=== PATIENT | male | born 1970 | race Caucasian/White ===

== ENCOUNTER 2024-01-19 21:09 | Emergency (ER) | payer OTHER, SELFPAY ==
[2024-01-19 21:09] VITALS: BMI 23.3
[2024-01-19 21:11] VITALS: BP 140/102
[2024-01-19 21:45] LABS: % Basophils 0.3 % (0-2); % Immature Granulocytes 0.4 % (0-0.5); % Lymphocytes 13.1 % (20.5-51.1); % Monocytes 8.3 % (1.7-9.3); % Neutrophils 76.9 % (42.2-75.2); Absolute Eosinophils 0.1 10^3/uL (0-0.7); Absolute Lymphocytes 1.4 10^3/uL (1.2-3.4); Absolute Monocytes 0.9 10^3/uL (0.1-0.6); Absolute Neutrophils 8.3 10^3/uL (1.4-6.5); Hematocrit 43.6 % (39.0-52.0); Hemoglobin 15.3 g/dL (13.0-18.0); Mean Corp Hgb Conc. 35.1 g/dL (33.0-37.0); Mean Corpuscular Volume 88.3 fL (80.0-94.0); Mean Platelet Volume 9.1 fL (7.4-10.4); Nucleated Red Blood Cells % 0 % (-); Platelet Count 274 10^3/uL (130-400); Red Blood Cell Count 4.94 10^6/uL (4.70-6.10); Red Cell Dist. Width 12.3 % (11.5-14.5); White Blood Cell Count 10.7 10^3/uL (4.8-10.8)
--- NOTE | 2024-01-19 22:03 | ED.GENMED ---
History of Present Illness
General
Chief Complaint: Headache
Source: patient
Exam Limitations: none
Time Seen by Provider: 01/19/24 21:48
Travel History
Have you had any contact with someone who has COVID-19?: No
Do you have any symptoms of coronavirus? Fever > 100 degrees, chills, cough, shortness of breath, sore throat, loss of taste or smell, muscle aches, or headache?: No
History of Present Illness
History of Present Illness:
This is a 53 year old male that comes in with c/o Migraine. States that this started on Friday and it is worse then his normal migraines. State that he started also with nausea and vomiting. States that he is light and sound sensitive. State that he
is living in his friends barn. States that he feels SOB with the pain and dizzy. Denies any fever, chills, chest pain, abd pain, diarrhea, urinary burning.
Past History
Past History
ED Past Medical History: HTN and Other (Migraines)
ED Past Surgical History: None
Social History
Tobacco: Smoker (and Vap's)
Alcohol: Occasional
Personal:
Living: homeless (Staying in a friends barn)
Employment: Employed
Review of Systems
Review of Systems
All Other Systems: ROS reviewed and negative except as documented in HPI and ROS
Constitutional: Reports no symptoms; Denies fever or chills
EENT: Reports no symptoms
Respiratory: Reports trouble breathing (with the pain); Denies cough
Cardiac: Reports no symptoms; Denies chest pain
ABD/GI: Reports nausea and vomiting; Denies abdominal pain or diarrhea
: Reports no symptoms; Denies dysuria, frequency or urgency
Musculoskeletal: Reports no symptoms
Skin: Reports no symptoms
Neurological: Reports dizzy and headache
Psychiatric: Reports no symptoms
Phy Exam
General Physical Exam
General Presentation: mild distress
General age: appears stated age
General Skin: warm and dry
General Habitus: poor hygiene
General Mental: alert
General Hydration: appears well hydrated
ENT Exam
ENT Exam: TM's normal, pharynx normal and neck supple
Eye Exam
Eye Exam: EOMI
Cardiovascular Exam
Cardiovascular Exam: regular rate/rhythm, no edema, no murmur and normal peripheral pulses
Pulmonary Exam
Pulmonary Exam: lungs clear, no respiratory distress, no rales, chest non tender, no crackles, no rhonchi, no wheezing and no cough
Gastrointestinal Exam
Gastrointestinal Exam: normal bowel sounds, non tender, soft, no organomegaly, no pulsatile mass and non distended
Musculoskeletal Exam
Musculoskeletal Exam: full ROM and no edema
Skin Exam
Skin Exam: normal color, warm/dry, no rash and no petechia
Psychiatric Exam
Psychiatric Exam: normal mood/affect
Course
Orders/Labs/Results
Orders:
Orders
01/19/24 21:39
Basic Metabolic Panel Urgent
Complete Blood Count/With Diff Urgent
01/19/24 22:02
CT Head W/o Iv Contrast Urgent
Comment:
Reason For Exam: WORSE THEN HIS NORMAL mIGRAINES
0.9% Sodium Chloride 1000 ml [Nss] 1,000 ml IV BOLUS
Acetaminophen [Tylenol] 1,000 mg PO NOW STA
Dexamethasone Sod Phosphate [Decadron] 20 mg IV NOW STA
Diphenhydramine [Benadryl] 25 mg IV NOW STA
Prochlorperazine [Compazine] 5 mg IV NOW STA
Abnormal Lab Results
01/19/24
21:39
Absolute Neuts (auto) 8.3 H 10^3/uL
(1.4-6.5)
Absolute Monos (auto) 0.9 H 10^3/uL
(0.1-0.6)
Neutrophils % 76.9 H %
(42.2-75.2)
Lymphocytes % 13.1 L %
(20.5-51.1)
Chloride 95 L mmol/L
(98-107)
Carbon Dioxide 32 H mmol/L
(22-30)
01/19/24 21:39
01/19/24 21:39
CBC Normal, Chloride slightly low. Carbon dioxide elevated.
Vital Signs
Initial and Last Documented VS:
Initial Vital Signs
Temp Pulse Resp BP Pulse Ox
97.3 F 102 24 140/102 100
01/19/24 21:11 01/19/24 21:11 01/19/24 21:11 01/19/24 21:11 01/19/24 21:11
Last Documented Vital Signs
Temp Pulse Resp BP Pulse Ox
97.3 F 97 20 158/69 100
01/19/24 21:11 01/20/24 00:05 01/20/24 00:05 01/20/24 00:05 01/20/24 00:05
MDM/Problems Addressed
Differential Diagnosis Includes:
Migraine,
MDM/Problems Addressed:
This is a 53 year old male that comes in with c/o migraine. States that this is the worse that he ever had.
Will get labs and CT head. Will medicate for pain.
Patient is feeling better and is now refusing the CT of his head and wants to go home. Will discharge home.
Chronic conditions affecting care:
Chronic migraines
Acute Exacerbation and/or Progression of Chronic Illness:
Migraines
*Pulse Oximetry
Patient hypoxic: no
*EKG
Interpreted by ED Provider?: NA
Rate: EKG- N/A
*Enterprise Application Administrator Interpretation
Rate: Enterprise Application Administrator- N/A
*Critical Care Note
Total Time (30-74mins, 75-104mins- exclusive of procedures): Not Applicable
ED Attending Note
-
Portions of this chart may have been created with voice recognition software.� Occasional wrong word or��sound alike� substitutions may have occurred due to the inherent limitations of voice recognition software.
Discharge Plan
Departure
Patient Disposition: Home (Routine Discharge)
Date of Disposition: 01/20/24
Time of Disposition: 00:17
Patient with high blood pressure during this ER visit?: Yes
Condition: Good
Covid-19: Not Applicable
Discharge Problem:
Migraine
Instructions: Migraines (DC), BLOOD PRESSURE
Prescriptions:
No Action
dextroamphetamine-amphetamine [Adderall XR] 30 mg Capsule,Extended Release 24hr
30 mg PO DAILY
rizatriptan 10 mg Tablet
10 mg PO DAILYPRN PRN (Reason: mirgraines)
buprenorphine-naloxone 8-2 mg film
0.5 film sublingual DAILY
amoxicillin-pot clavulanate 875-125 mg tablet
1 tab PO Q12H Qty: 12 0RF
dextroamphetamine-amphetamine 30 mg tablet
30 mg PO BID
Referrals:
NONE,* [Family Provider] -
Activity Restrictions/Additional Instructions:
As discussed, please follow up with the family doctor for recheck. Please increase your water intake to 8-8oz glasses daily. You may take Tylenol 1000mg every 6 hours for pain and Alternate with Ibuprofen 600mg every 6 hours with food for pain. IF
YOU HAVE ANY OTHER CONCERNS PLEASE RETURN TO THE EMERGENCY ROOM.
Interventions
Interventions:
*Risk Screen - Suicide Last Done: 01/19/24 21:11
*General Assessment Last Done: 01/19/24 23:05
*Neglect/Abuse Screening Last Done: 01/19/24 21:11
ED- Neurological Assessment Last Done: 01/19/24 23:05
Discharge Date and Time
Print Language: GEORGIAN
[2024-01-19 22:08] LABS: Blood Urea Nitrogen 17 mg/dl (9-20); Calcium 9.4 mg/dl (8.4-10.2); Carbon Dioxide 32 mmol/L (22-30); Chloride 95 mmol/L (98-107); Glucose 90 mg/dl (70-99); Sodium 136 mmol/L (135-145); eGFR > 60.00
[2024-01-19] MEDS: NSS 1000 IV (22:19)
[2024-01-19] MEDS: BENADRYL 25 MG IV (22:20)
[2024-01-19] MEDS: TYLENOL 1000 MG PO (22:20)
[2024-01-19] MEDS: COMPAZINE 5 MG IV (22:20)
[2024-01-19] MEDS: DECADRON 20 MG IV (22:21)
[2024-01-19 22:30] VITALS: BP 162/95
[2024-01-20 00:05] VITALS: BP 158/69
== END 2024-01-20 01:30 | disposition home or self-care (01) ==
LOC: EMR 21:09
PROVIDERS: Emergency Medicine; EMERGENCY PHYSICIAN Emergency Medicine
DX: G43.909 Migraine, unspecified, not intractable, without status migrainosus (principal); R11.2 Nausea with vomiting, unspecified; R06.02 Shortness of breath; R42 Dizziness and giddiness; I10 Essential (primary) hypertension; F17.290 Nicotine dependence, other tobacco product, uncomplicated; Z59.01 Sheltered homelessness
CPT/HCPCS: 99284; 96374; 96375 ×2; 96361; 80048; 85025

== ENCOUNTER 2024-02-13 15:46 | Emergency (ER) | payer OTHER, SELFPAY ==
[2024-02-13 15:48] VITALS: BP 163/102
[2024-02-13 16:24] VITALS: BP 156/108; BMI 22.6
[2024-02-13 17:00] VITALS: BP 154/108
[2024-02-13] MEDS: BENADRYL 25 MG IV (17:12)
[2024-02-13] MEDS: NSS 1000 IV (17:12)
[2024-02-13] MEDS: DECADRON 10 MG IV (17:13)
[2024-02-13] MEDS: COMPAZINE 10 MG IV (17:13)
[2024-02-13 17:15] LABS: % Basophils 0.7 % (0-2); % Eosinophils 2.6 % (0-6); % Immature Granulocytes 0.4 % (0-0.5); % Lymphocytes 16.4 % (20.5-51.1); % Neutrophils 68.9 % (42.2-75.2); Absolute Basophils 0.1 10^3/uL (0-0.2); Absolute Eosinophils 0.2 10^3/uL (0-0.7); Absolute Lymphocytes 1.5 10^3/uL (1.2-3.4); Absolute Neutrophils 6.2 10^3/uL (1.4-6.5); Hematocrit 41.2 % (39.0-52.0); Hemoglobin 14.4 g/dL (13.0-18.0); Mean Corpuscular Hgb 30.6 pg (27.0-31.0); Mean Corpuscular Volume 87.7 fL (80.0-94.0); Mean Platelet Volume 8.7 fL (7.4-10.4); Nucleated Red Blood Cells % 0 % (-); Platelet Count 299 10^3/uL (130-400); Red Cell Dist. Width 12.4 % (11.5-14.5); White Blood Cell Count 9.1 10^3/uL (4.8-10.8)
[2024-02-13 17:30] LABS: ALT (SGPT) 33 U/L (0-50); AST (SGOT) 32 U/L (17-59); Albumin 4.1 g/dl (3.5-5.0); Alkaline Phosphatase 58 U/L (38-126); Blood Urea Nitrogen 11 mg/dl (9-20); Calcium 8.9 mg/dl (8.4-10.2); Carbon Dioxide 30 mmol/L (22-30); Chloride 97 mmol/L (98-107); Estimated Creatinine Clearance 122 ml/min; Glucose 133 mg/dl (70-99); Potassium 5.4 mmol/L (3.5-5.1); Sodium 135 mmol/L (135-145); Total Bilirubin 0.6 mg/dl (0.2-1.3); Total Protein 6.8 g/dl (6.3-8.2); eGFR > 60.00
[2024-02-13 18:00] VITALS: BP 179/115
--- NOTE | 2024-02-13 19:36 | ED.CVA ---
History of Present Illness
General
Chief Complaint: CVA/TIA Symptoms
Source: patient
Time Seen by Provider: 02/13/24 16:50
Onset of Stroke Symptoms
Onset of symptoms known: No
Time pt last seen normal is known: No
Travel History
Have you had any contact with someone who has COVID-19?: No
Do you have any symptoms of coronavirus? Fever > 100 degrees, chills, cough, shortness of breath, sore throat, loss of taste or smell, muscle aches, or headache?: No
History of Present Illness
History of Present Illness:
53-year-old male presents complaining of left-sided facial droop and numbness with dysfunction of the left side of his face that started yesterday morning. He also notes a headache. He has a history of migraines. He was here about 3 to 4 weeks
ago for migraine headache. He states he has not had his Suboxone in 3 days. He typically is on 8 mg dissolvable medication. No fever or rash.
Past History
Past History
ED Past Medical History: HTN and Other (Migraines)
ED Past Surgical History: None
Social History
Tobacco: Smoker (and Vap's)
Alcohol: Occasional
Personal:
Living: homeless (Staying in a friends barn)
Employment: Employed
Phy Exam
Physical Exam
Physical Exam:
General: Well-appearing male no acute respiratory distress
HEENT: Normocephalic atraumatic left-sided facial droop noted. Unable to wrinkle forehead on left side. Weak strength with eyelid closing on the left side. Neurologic: Alert normal gait conversing appropriately facial asymmetry noted
Heart: Regular rate and rhythm no murmurs
Lungs: Clear no wheeze or rales
Extremities: No cyanosis or edema
Skin: Warm no rash
Course
Orders/Labs/Results
Orders:
Orders
02/13/24 17:02
0.9% Sodium Chloride 1000 ml [Nss] 1,000 ml IV BOLUS
Dexamethasone Sod Phosphate [Decadron] 10 mg IV NOW STA
Diphenhydramine [Benadryl] 25 mg IV NOW STA
Prochlorperazine [Compazine] 10 mg IV NOW STA
02/13/24 17:10
Complete Blood Count/With Diff Urgent
Comprehensive Metabolic Panel Urgent
Lyme Progressive Urgent
02/13/24 20:35
Buprenorphine [Subutex] 8 mg SL NOW ONE
Abnormal Lab Results
02/13/24
17:10
Absolute Monos (auto) 1.0 H 10^3/uL
(0.1-0.6)
Lymphocytes % 16.4 L %
(20.5-51.1)
Monocytes % 11.0 H %
(1.7-9.3)
Potassium 5.4 H mmol/L
(3.5-5.1)
Chloride 97 L mmol/L
(98-107)
Glucose 133 H mg/dl
(70-99)
02/13/24 17:10
02/13/24 17:10
Vital Signs
Initial and Last Documented VS:
Initial Vital Signs
Temp Pulse Resp BP Pulse Ox
98.2 F 103 20 163/102 99
02/13/24 15:48 02/13/24 15:48 02/13/24 15:48 02/13/24 15:48 02/13/24 15:48
Last Documented Vital Signs
Temp Pulse Resp BP Pulse Ox
98.2 F 88 18 159/114 99
02/13/24 15:48 02/13/24 19:48 02/13/24 19:48 02/13/24 19:48 02/13/24 19:48
MDM/Problems Addressed
Differential Diagnosis Includes:
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 Do not suspect CVA. Patient does have a headache. He was here 3 weeks ago for the same. Treated with Compazine Benadryl steroid and fluids. Patient quite irritable
when I ask him how his symptoms are.
*Critical Care Note
Total Time (30-74mins, 75-104mins- exclusive of procedures): Not Applicable
Update Note
Update Note:
Patient reevaluated multiple times. Exam most consistent with Keita's palsy. Will prescribe prednisone. Lyme test pending. Will also supply 2 days worth of the Suboxone for the patient. He was seen by Chip norman. They have an appointment for him
this coming Friday in 2 days at the [facility]. He received Subutex here 1 dose.
ED Attending Note
-
Portions of this chart may have been created with voice recognition software.� Occasional wrong word or��sound alike� substitutions may have occurred due to the inherent limitations of voice recognition software.
Discharge Plan
Departure
Patient Disposition: Home (Routine Discharge)
Date of Disposition: 02/13/24
Time of Disposition: 20:40
Patient with high blood pressure during this ER visit?: No
Discharge Problem:
Migraine, Keita's palsy
Prescriptions:
New
prednisone 10 mg Tablet
See Rx Instructions .ROUTE .COMPLEX Qty: 45 0RF
Rx Instructions:
Take By Mouth:
50 mg daily x3 days, 40 mg daily x3 days,
30 mg daily x3 days, 20 mg daily x3 days,
10 mg daily x3 days
buprenorphine-naloxone [Suboxone] 8-2 mg film
1 film buccal DAILY Qty: 2 0RF
No Action
dextroamphetamine-amphetamine [Adderall XR] 30 mg Capsule,Extended Release 24hr
30 mg PO DAILY
rizatriptan 10 mg Tablet
10 mg PO DAILYPRN PRN (Reason: mirgraines)
buprenorphine-naloxone 8-2 mg film
0.5 film sublingual DAILY
amoxicillin-pot clavulanate 875-125 mg tablet
1 tab PO Q12H Qty: 12 0RF
dextroamphetamine-amphetamine 30 mg tablet
30 mg PO BID
Referrals:
UNKNOWN - PT DOES,NOT KNOW [Family Provider] -
Activity Restrictions/Additional Instructions:
Please follow-up with the [facility] as directed. Use prednisone as directed for your Keita's palsy. You were prescribed 2 tablets of Suboxone to get you through till Friday until he sees the [facility].
Interventions
Interventions:
*Risk Screen - Suicide Last Done: 02/13/24 16:25
*General Assessment Last Done: 02/13/24 16:25
*Neglect/Abuse Screening Last Done: 02/13/24 16:25
ED- Fall Risk Assessment Last Done: 02/13/24 16:29
*ED COVID-19 Vaccine History Last Done: 02/13/24 15:48
ED- Pulmonary Assessment Last Done: 02/13/24 16:30
ED- Neurological Assessment Last Done: 02/13/24 16:29
ED- Cardiac Assessment Last Done: 02/13/24 16:28
ED Swallowing Screen Last Done: 02/13/24 16:28
Discharge Date and Time
Print Language: WELSH
[2024-02-13 19:48] VITALS: BP 159/114
[2024-02-13 20:43] VITALS: BP 169/109
[2024-02-13] MEDS: SUBUTEX 8 MG SL (20:56)
[2024-02-16 14:39] LABS: Lyme Antibody Screen, EIA Negative (Negative)
== END 2024-02-13 21:31 | disposition home or self-care (01) ==
LOC: EMR 15:46
PROVIDERS: Physician Assistant; EMERGENCY PHYSICIAN Emergency Medicine
DX: G51.0 Bell's palsy (principal); G43.909 Migraine, unspecified, not intractable, without status migrainosus; I10 Essential (primary) hypertension; F17.290 Nicotine dependence, other tobacco product, uncomplicated; Z59.01 Sheltered homelessness
CPT/HCPCS: 99284; 96374; 96375 ×2; 96361; 80053; 85025; 86618

== ENCOUNTER 2025-01-10 02:01 | Emergency (ER) | payer OTHER, SELFPAY ==
[2025-01-10 02:03] VITALS: BP 190/118
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
[2025-01-10 06:25] VITALS: BMI 27.5
[2025-01-10 06:26] VITALS: BP 179/111
== END 2025-01-10 07:24 | disposition home or self-care (01) ==
LOC: EMR 02:01
PROVIDERS: EMERGENCY PHYSICIAN Emergency Medicine; FAMILY PHYSICIAN Family Medicine
DX: M79.672 Pain in left foot (principal); M79.89 Other specified soft tissue disorders; F11.11 Opioid abuse, in remission; I10 Essential (primary) hypertension; G43.909 Migraine, unspecified, not intractable, without status migrainosus; F17.290 Nicotine dependence, other tobacco product, uncomplicated; Z59.01 Sheltered homelessness
CPT/HCPCS: 99283; 73620

== ENCOUNTER 2025-06-21 15:00 | Emergency (ER) | payer OTHER, SELFPAY ==
[2025-06-21] VITALS (8 sets, daily range): BP systolic 163–200; BP diastolic 89–119; BMI 23.2
[2025-06-21 15:24] LABS: Hematocrit 43.8 % (39.0-52.0); Hemoglobin 15.2 g/dL (13.0-18.0); Mean Corp Hgb Conc. 34.7 g/dL (33.0-37.0); Mean Corpuscular Volume 92.0 fL (80.0-94.0); Nucleated Red Blood Cells % 0 % (-); Platelet Count 331 10^3/uL (130-400); Red Cell Dist. Width 12.1 % (11.5-14.5)
[2025-06-21 15:46] LABS: ALT (SGPT) 28 U/L (0-50); AST (SGOT) 29 U/L (17-59); Albumin 4.5 g/dl (3.5-5.0); Alkaline Phosphatase 44 U/L (38-126); Blood Urea Nitrogen 14 mg/dl (9-20); Calcium 9.2 mg/dl (8.4-10.2); Carbon Dioxide 25 mmol/L (22-30); Chloride 104 mmol/L (98-107); Estimated Creatinine Clearance 107 ml/min; Glucose 112 mg/dl (70-99); Potassium 3.7 mmol/L (3.5-5.1); Sodium 134 mmol/L (135-145); Total Protein 7.2 g/dl (6.3-8.2); eGFR > 60.00
--- NOTE | 2025-06-21 16:27 | ED.GENMED ---
History of Present Illness
<Alex Crenshaw PA-C - Last Filed: 06/21/25 23:00>
General
Chief Complaint: Headache
Source: patient
Exam Limitations: none
Time Seen by Provider: 06/21/25 16:18
History of Present Illness
History of Present Illness:
54-year-old male presents with headache over the past 10 hours. He has a history of headaches and migraines this feels like a migraine has had before is progressively worsening. He denies a fever. He denies vision change. No vomiting. No other
complaints at this time
Past History
<Alex Crenshaw PA-C - Last Filed: 06/21/25 23:00>
Past History
ED Past Medical History: HTN and Other (Migraines)
ED Past Surgical History: None
Social History
Tobacco: Smoker (and Vap's)
Alcohol: Occasional
Personal:
Living: homeless (Staying in a friends barn)
Employment: Employed
Phy Exam
<Alex Crenshaw PA-C - Last Filed: 06/21/25 23:00>
Physical Exam
Physical Exam:
General: Well-appearing male no acute respiratory distress
HEENT normal cephalic pupils equal round reactive to light posterior pharynx patent neck is supple
Heart: Regular rate and rhythm
Lungs: Clear no wheeze
Neurologic exam: Alert and oriented no nuchal rigidity moving all extremities well no meningeal signs
Course
<Alex Crenshaw PA-C - Last Filed: 06/21/25 23:00>
Orders/Labs/Results
Orders:
Orders
06/21/25 15:15
Alcohol Urgent
Complete Blood Count/With Diff Urgent
Comprehensive Metabolic Panel Urgent
06/21/25 16:25
0.9% Sodium Chloride 1000 ml [Nss] 1,000 ml IV BOLUS
Diphenhydramine [Benadryl] 25 mg IV NOW STA
Prochlorperazine [Compazine] 10 mg IV NOW STA
06/21/25 17:53
CT Head W/o Iv Contrast Urgent
Comment:
Reason For Exam: headache
06/21/25 18:35
Drug Screen, Urine [Urine Drug Abuse Screen] Urgent
Date Specimen was Collected: 06/21/25
Time Specimen was Collected: 18:34
Fentanyl, Urine Urgent
06/21/25 22:45
Case Management Consult ONCE
Case Management Consult: Discharge Planning
06/22/25 03:27
Acetaminophen [Tylenol] 1,000 mg .ROUTE .STK-MED ONE
06/22/25 03:29
Acetaminophen [Tylenol] 1,000 mg PO NOW STA
06/22/25 04:14
Ibuprofen [Motrin] 400 mg PO NOW STA
06/22/25 04:50
Clonidine [Catapres] 0.1 mg PO NOW STA
06/22/25 08:41
Ketorolac [Toradol] 15 mg IV NOW STA
Abnormal Lab Results
06/21/25 06/21/25
15:15 18:35
MCH 31.9 H pg
(27.0-31.0)
Sodium 134 L mmol/L
(135-145)
Glucose 112 H mg/dl
(70-99)
Ur Amphetamines Screen Positive H
(Negative)
U Methamphetamines Scrn Positive H
(Negative)
06/21/25 15:15
06/21/25 15:15
Vital Signs
Initial and Last Documented VS:
Initial Vital Signs
Temp
97.8 F
06/21/25 15:04
Last Documented Vital Signs
Temp Pulse Resp BP Pulse Ox
97.8 F 85 7 175/109 99
06/21/25 15:04 06/22/25 06:45 06/21/25 15:14 06/22/25 06:00 06/22/25 06:45
<Irina Wesley PA-C - Last Filed: 06/22/25 06:29>
Orders/Labs/Results
Orders:
Orders
06/21/25 15:15
Alcohol Urgent
Complete Blood Count/With Diff Urgent
Comprehensive Metabolic Panel Urgent
06/21/25 16:25
0.9% Sodium Chloride 1000 ml [Nss] 1,000 ml IV BOLUS
Diphenhydramine [Benadryl] 25 mg IV NOW STA
Prochlorperazine [Compazine] 10 mg IV NOW STA
06/21/25 17:53
CT Head W/o Iv Contrast Urgent
Comment:
Reason For Exam: headache
06/21/25 18:35
Drug Screen, Urine [Urine Drug Abuse Screen] Urgent
Date Specimen was Collected: 06/21/25
Time Specimen was Collected: 18:34
Fentanyl, Urine Urgent
06/21/25 22:45
Case Management Consult ONCE
Case Management Consult: Discharge Planning
06/22/25 03:27
Acetaminophen [Tylenol] 1,000 mg .ROUTE .STK-MED ONE
06/22/25 03:29
Acetaminophen [Tylenol] 1,000 mg PO NOW STA
06/22/25 04:14
Ibuprofen [Motrin] 400 mg PO NOW STA
06/22/25 04:50
Clonidine [Catapres] 0.1 mg PO NOW STA
06/22/25 08:41
Ketorolac [Toradol] 15 mg IV NOW STA
Abnormal Lab Results
06/21/25 06/21/25
15:15 18:35
MCH 31.9 H pg
(27.0-31.0)
Sodium 134 L mmol/L
(135-145)
Glucose 112 H mg/dl
(70-99)
Ur Amphetamines Screen Positive H
(Negative)
U Methamphetamines Scrn Positive H
(Negative)
06/21/25 15:15
06/21/25 15:15
Vital Signs
Initial and Last Documented VS:
Initial Vital Signs
Temp
97.8 F
06/21/25 15:04
Last Documented Vital Signs
Temp Pulse Resp BP Pulse Ox
97.8 F 85 7 175/109 99
06/21/25 15:04 06/22/25 06:45 06/21/25 15:14 06/22/25 06:00 06/22/25 06:45
Moshelt;Nessa Gonzalez PA-C - Last Filed: 06/22/25 08:53>
Orders/Labs/Results
Orders:
Orders
06/21/25 15:15
Alcohol Urgent
Complete Blood Count/With Diff Urgent
Comprehensive Metabolic Panel Urgent
06/21/25 16:25
0.9% Sodium Chloride 1000 ml [Nss] 1,000 ml IV BOLUS
Diphenhydramine [Benadryl] 25 mg IV NOW STA
Prochlorperazine [Compazine] 10 mg IV NOW STA
06/21/25 17:53
CT Head W/o Iv Contrast Urgent
Comment:
Reason For Exam: headache
06/21/25 18:35
Drug Screen, Urine [Urine Drug Abuse Screen] Urgent
Date Specimen was Collected: 06/21/25
Time Specimen was Collected: 18:34
Fentanyl, Urine Urgent
06/21/25 22:45
Case Management Consult ONCE
Case Management Consult: Discharge Planning
06/22/25 03:27
Acetaminophen [Tylenol] 1,000 mg .ROUTE .STK-MED ONE
06/22/25 03:29
Acetaminophen [Tylenol] 1,000 mg PO NOW STA
06/22/25 04:14
Ibuprofen [Motrin] 400 mg PO NOW STA
06/22/25 04:50
Clonidine [Catapres] 0.1 mg PO NOW STA
06/22/25 08:41
Ketorolac [Toradol] 15 mg IV NOW STA
Abnormal Lab Results
06/21/25 06/21/25
15:15 18:35
MCH 31.9 H pg
(27.0-31.0)
Sodium 134 L mmol/L
(135-145)
Glucose 112 H mg/dl
(70-99)
Ur Amphetamines Screen Positive H
(Negative)
U Methamphetamines Scrn Positive H
(Negative)
06/21/25 15:15
06/21/25 15:15
Vital Signs
Initial and Last Documented VS:
Initial Vital Signs
Temp
97.8 F
06/21/25 15:04
Last Documented Vital Signs
Temp Pulse Resp BP Pulse Ox
97.8 F 85 7 175/109 99
06/21/25 15:04 06/22/25 06:45 06/21/25 15:14 06/22/25 06:00 06/22/25 06:45
<Alex Crenshaw PA-C - Last Filed: 06/21/25 23:00>
MDM/Problems Addressed
Differential Diagnosis Includes:
Patient with gradual onset headache does not describe thunderclap headache with history of migraines and states that this feels similar to prior migraines. No meningeal signs on exam. Will order fluids Compazine Benadryl. Labs reviewed without
significant finding
<Alex Crenshaw PA-C - Last Filed: 06/21/25 23:00>
*Pulse Oximetry
SaO2: 99
Oxygen Mode of Delivery: Room air
<Irina Wesley PA-C - Last Filed: 06/22/25 06:29>
*Pulse Oximetry
Patient hypoxic: no
*Critical Care Note
Total Time (30-74mins, 75-104mins- exclusive of procedures): Not Applicable
<Alex Crenshaw PA-C - Last Filed: 06/21/25 23:00>
Update Note
Update Note:
Patient noted persistent headache. CT of the head was ordered which was negative. Reevaluated multiple times he has been sleeping for most of the time but wakes up disoriented not aware of his surroundings. Urine drug screen positive for
methamphetamine. Patient is homeless. Will allow the patient to metabolize overnight and consult case management in the morning
<Irina Wesley PA-C - Last Filed: 06/22/25 06:29>
Update Note
Update Note:
Patient noted persistent headache. CT of the head was ordered which was negative. Reevaluated multiple times he has been sleeping for most of the time but wakes up disoriented not aware of his surroundings. Urine drug screen positive for
methamphetamine. Patient is homeless. Will allow the patient to metabolize overnight and consult case management in the morning
4:51 AM, I received patient insign out pending case management consult. Update I was notified by nursing staff the patient's blood pressure 200/127. Will give a dose of Catapres. ED attending made aware. Likely due to methaamphetamine.
<Nessa Gonzalez PA-C - Last Filed: 06/22/25 08:53>
Update Note
Update Note:
Patient noted persistent headache. CT of the head was ordered which was negative. Reevaluated multiple times he has been sleeping for most of the time but wakes up disoriented not aware of his surroundings. Urine drug screen positive for
methamphetamine. Patient is homeless. Will allow the patient to metabolize overnight and consult case management in the morning
4:51 AM, I received patient insign out pending case management consult. Update I was notified by nursing staff the patient's blood pressure 200/127. Will give a dose of Catapres. ED attending made aware. Likely due to methaamphetamine.
8:51 AM: Assumed care of patient at shift change. Case management saw patient and he is not interested in long-term resources. He was given $1 to take the bus. Patient complaining of a 5/10 headache although headache is chronic in nature and CT
head yesterday was normal. Patient stable for discharge.
ED Attending Note
<Alex Crenshaw PA-C - Last Filed: 06/21/25 23:00>
-
Portions of this chart may have been created with voice recognition software.� Occasional wrong word or��sound alike� substitutions may have occurred due to the inherent limitations of voice recognition software.
Discharge Plan
Departure
Patient Disposition: Home (Routine Discharge)
Date of Disposition: 06/22/25
Time of Disposition: 08:45
Patient with high blood pressure during this ER visit?: Yes
Discharge Problem:
Homeless, Chronic headache
Instructions: Headache, Adult (DC)
Prescriptions:
No Action
dextroamphetamine-amphetamine [Adderall XR] 30 mg Capsule,Extended Release 24hr
30 mg PO DAILY
rizatriptan 10 mg Tablet
10 mg PO DAILYPRN PRN (Reason: mirgraines)
buprenorphine-naloxone 8-2 mg film
0.5 film sublingual DAILY
amoxicillin-pot clavulanate 875-125 mg tablet
1 tab PO Q12H Qty: 12 0RF
dextroamphetamine-amphetamine 30 mg tablet
30 mg PO BID
prednisone 10 mg Tablet
See Rx Instructions .ROUTE .COMPLEX Qty: 45 0RF
Rx Instructions:
Take By Mouth:
50 mg daily x3 days, 40 mg daily x3 days,
30 mg daily x3 days, 20 mg daily x3 days,
10 mg daily x3 days
buprenorphine-naloxone [Suboxone] 8-2 mg film
1 film buccal DAILY Qty: 2 0RF
Referrals:
[facility] [Outside]
Kimberley Larsen, DO [Primary Care Provider, Family Practice]
UNKNOWN - PT NOT,INTERVIEWE [Family Provider]
Activity Restrictions/Additional Instructions:
Please follow-up with your family doctor or the free clinic. Return to the ER with any new or worsening symptoms.
Interventions
Interventions:
*General Assessment Last Done: 06/21/25 15:08
*Neglect/Abuse Screening Last Done: 06/21/25 15:08
*ED- Fall Risk Assessment Last Done: 06/21/25 15:08
*ED COVID-19 Vaccine History Last Done: 06/21/25 15:08
*ED Influenza Vaccine History Last Done: 06/21/25 15:08
ED- Neurological Assessment Last Done: 06/21/25 15:08
Discharge Date and Time
Print Language: YI
[2025-06-21] MEDS: COMPAZINE 10 MG IV (16:28)
[2025-06-21] MEDS: BENADRYL 25 MG IV (16:28)
[2025-06-21] MEDS: NSS 1000 IV (16:30)
[2025-06-22] VITALS (8 sets, daily range): BP systolic 167–200; BP diastolic 109–142
--- NOTE | 2025-06-22 02:19 | DOWNTIME ---
There was a [employer] Downtime on 06/22/2025 from 0100 to 06/22/2025 at 0215. Downtime documentation of patient's care, including medication administrations, has been reconciled in the electronic record per guidelines. Refer to the
patient's paper chart under the miscellaneous tab to see printed paper medication records and downtime forms.
[2025-06-22] MEDS: TYLENOL 1000 MG PO (03:30)
[2025-06-22] MEDS: MOTRIN 400 MG PO (04:33)
[2025-06-22] MEDS: CATAPRES 0.1 MG PO (05:01)
[2025-06-22] MEDS: TORADOL 15 MG IV (08:54)
--- NOTE | 2025-06-22 09:02 | EDCM ---
CM received consult and met with pt bedside in ED. Pt states he has been 'living on the sidewalk in the [facility]'. He refused information on halfway options, said he has already been given that information. I offered to get him to
[facility] but he told me that was not near where he wanted to go. Pt mentioned [employer] and [place] which are very close to [employer].
I offered to get him a ride to [facility] but he declined.
Pt complained that his headache is coming back, discussed with Xuan VILLALOBOS, Toradol ordered.
Pt given $1.00 and told the [employer] bus will pick him up in front of the main lobby at 935. He informed us he will not be ready by then. Discussed with his nurse Karolyn who will have him ready by then.
No further case management needs at this time.
== END 2025-06-22 10:00 | disposition home or self-care (01) ==
LOC: EMR 15:00
PROVIDERS: Physician Assistant; EMERGENCY PHYSICIAN Emergency Medicine; PRIMARYCARE PHYSICIAN Family Medicine
DX: R51.9 Headache, unspecified (principal); G89.29 Other chronic pain; Z59.00 Homelessness unspecified; I10 Essential (primary) hypertension; F17.200 Nicotine dependence, unspecified, uncomplicated
CPT/HCPCS: 99284; 96374; 96375; 96361; 70450; 80053; 80306; 80307; 82077; 85025